=== PATIENT | female | born 1965 | race Caucasian/White ===

== ENCOUNTER 2018-05-08 15:51 | Emergency (ER) | payer OTHER ==
[2018-05-08] MEDS ORDERED: methylPREDNISolone Sodium Succinate 125 MG/2 ML SDV IM ONE (16:42)
--- NOTE | 2018-05-08 16:47 | EDM.PDOC ---
ED HPI GENERAL MEDICAL PROBLEM - General Chief Complaint: Skin Complaint Stated Complaint: Hives Time Seen by Provider: 05/08/18 16:20 Source of Information: Reports: Patient, RN Notes Reviewed History Limitations: Reports: No Limitations - History of Present Illness INITIAL COMMENTS - FREE TEXT/NARRATIVE: 52 year old female presents to ED with complaint of hives that started around 1500. The hives quickly spread to her entire body. They come and go. She is quite itchy. No fever or chills. She had some [place] food about 2 hours prior to onset of rash. She has had 2 similar episodes in the past. One time was 2 years ago and the other was approximately 10 years ago. In the past it's been associated with exercise as well. She's had no exertional activity today. In the past, she has become hypotensive with these episodes. She denies any facial or throat swelling. Denies difficulty breathing. She's had allergy testing done in the past and was told she's allergic to shell fish. She took 100mg of Children's benadryl prior to arrival. Treatments SHE[employer] ROCK [employer]ANGER: Reports: Other (see below) Other Treatments SHE[employer] ROCK HANGER: bendryl - Related Data Allergies Allergy/AdvReac Type Severity Reaction Status Date / Time iv contrast dye Allergy Hives Uncoded 05/08/18 16:05 Home Meds: Home Meds Acetaminophen [Tylenol] 500 mg PO ASDIRECTED 05/08/18 [History] Cholecalciferol (Vitamin D3) [Vitamin D3] 2,000 unit PO DAILY 05/08/18 [History] predniSONE [Prednisone] 20 mg PO BID #6 tablet 05/08/18 [Rx] traMADol [Ultram] 50 mg PO Q6H 05/08/18 [History] Past Medical History Cardiovascular History: Reports: Other (See Below) Other Cardiovascular History: low b/p Musculoskeletal History: Reports: Other (See Below) Other Musculoskeletal History: fractured left radius-plates and screws Neurological History: Reports: Migraines Social & Family History - Tobacco Use Smoking Status *Q: Never Smoker - Caffeine Use Caffeine Use: Reports: Coffee, Soda - Recreational Drug Use Recreational Drug Use: No ED ROS GENERAL - Review of Systems Review Of Systems: See Below Constitutional: Reports: No Symptoms. Denies: Fever, Chills Respiratory: Reports: No Symptoms. Denies: Shortness of Breath, Wheezing Cardiovascular: Reports: No Symptoms. Denies: Chest Pain Skin: Reports: Rash, Urticaria ED EXAM, SKIN/RASH Exam: See Below Exam Limited By: No Limitations General Appearance: Alert, WD/WN, No Apparent Distress Throat/Mouth: Normal Inspection, Normal Lips, Normal Oropharynx, No Airway Compromise Respiratory/Chest: No Respiratory Distress, Lungs Clear, Normal Breath Sounds, No Accessory Muscle Use. No: Wheezing, Stridor Cardiovascular: Normal Peripheral Pulses, Regular Rate, Rhythm, No Murmur Skin: Warm, Dry, Normal Color Location, Skin: Generalized Characteristics: Patchy, Urticarial Course - Vital Signs Last Recorded V/S: Last Vital Signs Temp 97.8 F 05/08/18 16:00 Pulse 83 05/08/18 16:00 Resp 20 05/08/18 16:00 BP 145/85 H 05/08/18 16:00 Pulse Ox 99 05/08/18 16:00 - Orders/Labs/Meds Meds: Medications Discontinued Medications Generic Name Dose Route Start Last Admin Trade Name Gregorio PRN Reason Stop Dose Admin Methylprednisolone Sodium Succinate 125 mg 05/08/18 16:42 Solu-Medrol IM 05/08/18 16:43 ONETIME ONE - Re-Assessments/Exams Free Text/Narrative Re-Assessment/Exam: Patient stable with no respiratory involvement. She was given Solu-medrol 125mg IM x1 dose. No Benadryl was given as she took 100mg prior to arrival. Her vitals are stable. She will be discharged home with Prednisone to take if rash returns. Educated on return precautions. Also instructed to start Pepcid daily. Departure - Departure Time of Disposition: 17:00 Disposition: Home, Self-Care 01 Condition: Good Clinical Impression: Allergic reaction Qualifiers: Encounter type: initial encounter Qualified Code(s): T78.40XA - Allergy, unspecified, initial encounter - Discharge Information Prescriptions: predniSONE [Prednisone] 20 mg PO BID #6 tablet Referrals: PCP,Not In Area [Primary Care Provider] - Forms: ED Department Discharge Additional Instructions: Prednisone 20-40mg 1-2 times a day for up to 3 days if rash returns. Pepcid 1 tab daily for 3-5 days Benadryl 50mg every 4-6 hours as needed Return to ER with new or worsening symptoms
== END 2018-05-08 17:28 | disposition home or self-care (01) ==
LOC: JD.ED 15:51
DX: L50.0 Allergic urticaria (principal); Z91.041 Radiographic dye allergy status; Z79.899 Other long term (current) drug therapy
CPT/HCPCS: 96372; 99282; J2930; 99283